=== PATIENT | male | born 1995 | race Caucasian/White ===

== ENCOUNTER 2018-06-11 06:24 | Day surgery (SDC) | payer OTHER ==
[2018-06-03 11:32] VITALS: BMI 33.4
[2018-06-11] MEDS ORDERED: ceFAZolin SODIUM 1 GM VIAL ONE (07:04)
[2018-06-11] MEDS ORDERED: DEXAMETHASONE SOD PHOSPHATE 4 MG/1 ML VIAL ONE (07:04)
[2018-06-11] MEDS ORDERED: SODIUM CHLORIDE 0.9% P/F 10 ML VIAL IJ ONE ×2 (07:04→07:34)
[2018-06-11] MEDS ORDERED: KETOROLAC TROMETHAMINE 30 MG/1 ML VIAL ONE (07:04)
[2018-06-11] MEDS ORDERED: ONDANSETRON 4 MG/2 ML VIAL ONE (07:04)
[2018-06-11] MEDS ORDERED: LIDOCAINE HCL/PF 2% SDV 5ML VIAL ONE (07:04)
[2018-06-11] MEDS ORDERED: VANCOMYCIN 1,000 MG VIAL (RESTRICTED TO ID ONLY) ONE (07:09)
[2018-06-11] MEDS ORDERED: EPINEPHrine 1:1,000 1 MG/1 ML - 30ML VIAL (INJECTION) ONE (07:09)
[2018-06-11] MEDS ORDERED: PROPOFOL 20 ML ONE ×2 (07:10→08:43)
[2018-06-11] MEDS ORDERED: SUCCINYLCHOLINE CHLORIDE 200 MG/10 ML VIAL ONE (07:10)
--- NOTE | 2018-06-11 07:15 | HP ---
History & Physical Update - History History: No Change - Physical Physical: No Change - Assessment Assessment: No Change - Plan Plan: No Change
[2018-06-11] MEDS ORDERED: BUPIVACAINE LIPOSOME/PF (EXPAREL) 266 MG/20 ML VIAL ONE (07:22)
[2018-06-11] MEDS ORDERED: MIDAZOLAM HCL 2 MG/2 ML SINGLE DOSE VIAL ONE (07:22)
[2018-06-11] MEDS ORDERED: BUPIVACAINE HCL/PF (5 MG/ML) 30 ML VIAL IJ ONE (07:23)
[2018-06-11] MEDS ORDERED: TRANEXAMIC ACID 1000 MG/10 ML VIAL ONE ×2 (08:30→09:51)
[2018-06-11] MEDS ORDERED: ePHEDrine SULFATE 50 MG/1 ML AMPULE ONE (09:00)
--- NOTE | 2018-06-11 10:44 | OP ---
Operative Note - Note: Operative Date: 06/11/18 Pre-Operative Diagnosis: right knee LMT, ACL tear Operation: RKA, LMR, ACL reconstruction Post-Operative Diagnosis: Same as Pre-op Surgeon: Gustavo De La Torre Radiation Oncology Nurse: Trish Maddox Anesthesiologist/BUSINESS OPERATIONS MANAGER: Virgilio Finch Anesthesia: General Operative Report Dictated: Yes
--- NOTE | 2018-06-11 10:44 | DS ---
Physical Examination Vital Signs: Vital Signs Temperature 98.1 F 06/11/18 06:46 Pulse Rate 77 06/11/18 06:46 Respiratory Rate 18 06/11/18 06:46 Blood Pressure 136/86 06/11/18 06:46 O2 Sat by Pulse Oximetry (%) 99 06/11/18 06:46 Discharge Summary Reason For Visit: ANTERIOR CRUCIATE LIGAMENT, LATERAL MENISCAL TEAR, Condition: Good - Instructions Diet, Activity, Other Instructions: Post Operative Instructions: ACL Reconstruction Dr. Gustavo De La Torre 1. Pain following an ACL reconstruction is variable and can be significant. Some patients will have more pain than others. You have been provided with a prescription for medication that contains a narcotic. You are not allowed to drive while on this medication. You should take Tylenol (Acetaminophen) when taking the pain medication ( it will NOT result in an overdose). Feel free to take medications such as Ibuprofen or Naprosyn in addition to the pain medicine if you do not have any problems with the NSAID class of medications. !! TAKE ASPIRIN, 81 mg TWICE A DAY FOR 10 DAYS to decrease the risk of blood clots!! 2. You should not remove the bandages for 72 hours. You may shower at that point. You are not allowed to bathe or go swimming. Put band-aids on the sutures after your shower and do not put any creams or lotions over the incisions. 3. You are allowed to put weight on the leg and you should bend your knee. You MUST use crutches for assistance unless directed otherwise. 4. Getting the knee straight is your most important goal during the first 72 hours following an ACL reconstruction. Try not to lie down with a pillow under your knee. Instead the pillow should be under your ankle, thus allowing you to push your knee straight down into the bed. This is a very important milestone to achieve before your first post-surgery visit with me. 5. Swelling around the knee is normal following an ACL reconstruction. 6. The area around the knee and along the front of your schneider will also become swollen and black and blue. 7. Apply ice to the knee for 15 min every hour or so. You may continue this for as many days as you like. 8. Please call the office to schedule a visit to have your sutures removed. 9. If for any reason you believe you may have an infection or are concerned, please feel free to call me. I can be reached through our office number 24 hours a day. 10. Please call our office with any questions; we will review the surgical findings during your post operative visit. Disposition: HOME - Home Medications Comprehensive Discharge Medication List: Ambulatory Orders NK [No Known Home Medication] 06/03/18
[2018-06-11] MEDS ORDERED: oxyCODONE HCL 5 MG TABLET PO PRN ×2 (11:11)
[2018-06-11] MEDS ORDERED: ONDANSETRON 4 MG/2 ML VIAL IVPUSH PRN (11:11)
[2018-06-11] MEDS ORDERED: LACTATED RINGERS SOLUTION 1,000 ML IV SCH (11:15)
--- NOTE | 2018-06-11 12:43 | SURG ---
Surgery Windshield Technician Note Windshield Technician: Trish Maddox PA-C Date of Service: 06/11/18 Diagnosis: right knee LMT, ACL tear Procedure: RKA, LMR, ACL reconstruction I was present for the entirety of the operative procedure. For further detail, please refer to operative report. Visit type - Case Type Case Type: Scheduled - Emergency Emergency Visit: No - New patient This patient is new to me today: Yes Date on this admission: 06/11/18
[2018-06-11 15:13] VITALS: BP 121/65; PULSE 80; TEMP 98
--- NOTE | 2018-06-17 16:01 | PATH ---
Surgical Pathology Report Patient Name: XU LOVE [facility]. Rec. #: [id number] /Age/Gender: 1995 (Age: 23) / M Account: [id number] Location: [facility] Taken: 06/11/2018 Received: 06/11/2018 Reported: 06/17/2018 Physicians: Gustavo De La Torre M.D. Specimen(s) Received SHAVINGS RIGHT KNEE Clinical History Right ACL tear Final Diagnosis KNEE, RIGHT, ARTHROSCOPIC SHAVINGS: FIBROSYNOVIAL, FIBROADIPOSE AND FIBROCOLLAGENOUS TISSUE WITH SCANT BONE. Electronically Signed Ita Ward M.D. Gross Description Received in formalin, labeled "shavings right knee," is a 4.5 x 4.0 x 0.4 cm. aggregate of faria-yellow soft tissue fragments. A financial services sales representative portion is submitted in one cassette. /06/14/201806/14/2018
== END 2018-06-11 13:15 | disposition home or self-care (01) ==
LOC: FASU 06:24
PROVIDERS: ATTEND Orthopaedic Surgery
PROC: 0SQC4ZZ Repair Right Knee Joint, Percutaneous Endoscopic Approach (ICD-10-PCS; 2018-06-11)
PROC: 0MRN47Z Replacement of Right Knee Bursa and Ligament with Autologous Tissue Substitute, Percutaneous Endoscopic Approach (ICD-10-PCS; principal; 2018-06-11 08:44)
DX: S83.511A Sprain of anterior cruciate ligament of right knee, initial encounter (principal); S83.281A Other tear of lateral meniscus, current injury, right knee, initial encounter; X58.XXXA Exposure to other specified factors, initial encounter; Y93.9 Activity, unspecified; Y92.9 Unspecified place or not applicable
CPT/HCPCS: 88304-TC; 94760